=== PATIENT | male | born 2000 | race Caucasian/White ===

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

== ENCOUNTER 2022-01-14 12:48 | Emergency (ER) | payer BC, SELFPAY ==
[2022-01-14 13:02] VITALS: BP 107/68; PULSE 109; RESP 17; TEMP 36.9; O2SAT 99; BMI 16.1
[2022-01-14 13:10] LABS: UTC Strep Screen (Rapid) Negative (Negative)
--- NOTE | 2022-01-14 13:39 | EXP.UTC ---
Discharge Plan Disposition Patient Disposition: Home, Self-Care Condition: Good Prescriptions Prescriptions: No Action budesonide 3 MG capsule,delayed,extend.release 9 mg PO DAILY mesalamine 800 MG tablet,delayed release (DR/EC) 800 mg PO TID Label Comments: TAKE 1 TABLET BY MOUTH THREE TIMES A DAY amoxicillin 500 MG tablet 500 mg PO TID 10 Days Qty: 30 0RF pmzmntwogvxqpwm-slxwlmcwu-DP 118 ML syrup 5 ml PO Q6HP PRN (Reason: Cough) Qty: 240 0RF amoxicillin 500 MG capsule 500 mg PO BID 10 Days Qty: 20 0RF Referrals Follow up/Referrals: Keyur Garcia MD [Primary Care Provider] - See instructions Clinical Impressions Clinical Impression: Upper respiratory tract infection Qualifiers: URI type: unspecified URI Qualified Code(s): J06.9 - Acute upper respiratory infection, unspecified Instructions Patient Instructions: DI for Viral Upper Respiratory Infection -- Adult Discharge ED Provider: Tanisha Cardozo [facility] General Stated complaint: Sore throat Mode of Arrival: Ambulatory Source of Information: Patient Limitations: No Limitations Time Seen by Provider: 01/14/22 13:38 Description of Symptoms (Recalled from Triage Doc. by RN): pt comes in with c/o sore throat, fever, chills, body aches, cough. symptoms began yesterday. HEENT Symptoms (Recalled from RN notes): Yes Resp Symptoms (Recalled from RN notes): Yes Skin Symptoms (Recalled from RN notes): No MS Symptoms (Recalled from RN notes): No Functional Status (Recalled from RN notes): n/a History of Present Illness Provider Complaint: Pt states that yesterday he started having fever, sore throat, chills, body aches, and cough. Pt states that his temp was 99. He has not taken anything for his symptoms. Denies any contact with anyone sick. States that he had Covid 3 weeks ago. Related Data Home Medications Medication Instructions Recorded Confirmed budesonide 3 mg 9 mg PO DAILY CROHNS 11/08/20 11/08/20 capsule,delayed,extended release mesalamine 800 mg tablet,delayed 800 mg PO TID CROHNS 11/08/20 11/08/20 release Previous Rx's Medication Instructions Recorded amoxicillin 500 mg capsule 500 mg PO BID 10 days #20 caps 07/19/21 amoxicillin 500 mg tablet 500 mg PO TID 10 days #30 tabs 12/16/21 [id number]-jqjjozcvtjmrwoz-SD 5 ml PO Q6HP PRN Cough #240 mL 12/16/21 2 mg-30 mg-10 mg/5 mL oral syrup Allergies Allergy/AdvReac Type Severity Reaction Status Date / Time No Known Allergies Allergy Verified 01/14/22 13:05 Worker's Comp Is this a Worker's Comp case?: No PFSH PFSH Medical History (Updated 01/14/22 @ 13:49 by Tanisha Cardozo APRN) Post-nasal drainage Seasonal allergies Viral pharyngitis Social History Smoking Status: Never smoker alcohol intake: never substance use type: denies use current occupational status: unemployed Travel in the last 8 weeks: None household members: family housing: house ROS Obtained: Yes All systems reviewed & no additional complaints except as documented Constitutional Constitutional: Reports as per HPI and Reports fever(s) Eyes Eyes: Reports system reviewed and no additional complaints, except as documented ENT Ears, Nose, Mouth, and Throat: Reports as per HPI, Reports nasal discharge, Reports odynophagia, Reports post nasal drip and Reports sore throat Cardiovascular Cardiovascular: Reports system reviewed and no additional complaints, except as documented Respiratory Respiratory: Reports as per HPI and Reports non-productive cough Gastrointestinal Gastrointestingal: Reports odynophagia Comments: has crohn's disease Genitourinary Male Genitourinary: Reports system reviewed and no additional complaints, except as documented Musculoskeletal Musculoskeletal: Reports system reviewed and no additional complaints, except as documented Integumentary/Breasts Skin/Breast: Reports system rev
[2022-01-14 13:55] VITALS: BP 107/68; PULSE 109; RESP 17; TEMP 36.9
== END 2022-01-14 13:55 | disposition home or self-care (01) ==
PROVIDERS: Emergency Provider Nurse Practitioner Family; PCP Internal Medicine Adolescent Medicine
DX: J02.9 Acute pharyngitis, unspecified (principal); J06.9 Acute upper respiratory infection, unspecified; M79.10 Myalgia, unspecified site; R05.9 Cough, unspecified; J30.2 Other seasonal allergic rhinitis
CPT/HCPCS: 87880; 99213; G0463

== ENCOUNTER 2022-04-18 10:03 | Emergency (ER) | payer BC, SELFPAY ==
[2022-04-18 10:15] VITALS: BP 124/71; PULSE 109; RESP 18; TEMP 37.1; O2SAT 100; BMI 14.8
--- NOTE | 2022-04-18 10:27 | EXP.UTC ---
Discharge Plan Disposition Patient Disposition: Home, Self-Care Condition: Good Prescriptions Prescriptions: New hwohmfmnzpjpuyd-rvivcuqhl-BG [Bromfed DM] 2-30-10 mg/5 mL Syrup 10 ml PO Q4H PRN (Reason: Cough) Qty: 200 0RF No Action mesalamine 800 MG tablet,delayed release (DR/EC) 400 mg PO TID Label Comments: TAKE 1 TABLET BY MOUTH THREE TIMES A DAY Referrals Follow up/Referrals: Keyur Garcia MD [Primary Care Provider] - See instructions Activity Restrictions/Add. Instructions Additional Instructions/Restrictions: *Monitor Temp, Over the counter Motrin or Tylenol as directed/as needed Tylenol every 4 hours and Motrin every 6 hours (as long as your family doctor has told you that you can take it) for fever or pain. and straight to ER if unable to lower temp less than 101.0 after medication given *Warm salt water gargles may help to soothe the throat *Throat Lozenges? *Warm fluids like tea with honey may help to soothe the throat? *Sleep elevated *Humidifier/Vaporizer Bromfed may cause drowsiness. Know how it effects you (your child) before driving, caring for small child, or sending your child to school. Not other antihistamines/allergy medications while taking bromfed Follow up IMMEDIATELY for new or worsening symptoms or no Noticeable improvement over the next 48-72 hours. 911 for difficulty breathing or swallowing Clinical Impressions Clinical Impression: Viral upper respiratory tract infection with cough Stand Alone Forms Stand Alone Forms: Work/School Release Instructions Patient Instructions: Cough, DI for Viral Upper Respiratory Infection -- Adult Discharge ED Provider: [place] Muñoz [facility] [place] General Stated complaint: Cough, bodyaches Time Seen by Provider: 04/18/22 10:31 History of Present Illness Provider Complaint: Patient states that he was around his brother last week that had the flu States that now he has been having body aches, chills and cough thinks he may have the flu now too Related Data Home Medications Medication Instructions Recorded Confirmed mesalamine 800 mg tablet,delayed 400 mg PO TID CROHNS 11/08/20 04/18/22 release Previous Rx's Medication Instructions Recorded iwqvlovndusvkvg-kmnlmhvmpvfdrdk-YU 10 ml PO Q4H PRN Cough #200 mL 04/18/22 2 mg-30 mg-10 mg/5 mL oral syrup (Bromfed DM) Allergies Allergy/AdvReac Type Severity Reaction Status Date / Time No Known Allergies Allergy Verified 01/14/22 13:05 [facility] Disclaimer: The information contained in this section may have been updated after the patient was seen, as this information can be updated by other users. Medical History (Updated 04/18/22 @ 10:37 by Kenya Muñoz APRN) History of anemia Post-nasal drainage Seasonal allergies Viral pharyngitis Social History (Updated 04/18/22 @ 10:29 by Meka Araya RN) Smoking Status: Never smoker alcohol intake: never substance use type: denies use current occupational status: unemployed Travel in the last 8 weeks: None household members: family housing: house ROS Obtained: Yes All systems reviewed & no additional complaints except as documented and Yes Systems reviewed as appropriate & no additional complaints except as documented Constitutional Constitutional: Reports system reviewed and no additional complaints, except as documented and Reports as per HPI ENT Ears, Nose, Mouth, and Throat: Reports system reviewed and no additional complaints, except as documented, Reports as per HPI and Reports nasal congestion Cardiovascular Cardiovascular: Reports system reviewed and no additional complaints, except as documented and Reports as per HPI Respiratory Respiratory: Reports system reviewed and no additional complaints, except as documented, Reports as per HPI and Reports cough Physical Exam General General appearance: alert and in no apparent distress ENT ENT exam: Prese
[2022-04-18 10:37] LABS: UTC Influenza A Antigen Negative (Negative)
[2022-04-18 10:38] LABS: UTC Influenza B Antigen Negative (Negative)
[2022-04-18 10:40] VITALS: BP 124/71; PULSE 109; RESP 18; TEMP 37.1; O2SAT 100
== END 2022-04-18 10:44 | disposition home or self-care (01) ==
PROVIDERS: Emergency Provider Nurse Practitioner; PCP Internal Medicine Adolescent Medicine
DX: J06.9 Acute upper respiratory infection, unspecified (principal)
CPT/HCPCS: 87804; 99212; G0463